=== PATIENT | male | born 1990 | race African-American/Black ===

== ENCOUNTER 2017-05-28 20:20 | Emergency (ER) | payer OTHER ==
--- NOTE | ~2017-05-28 | EKG ---
PATIENT: DONNIE HALE UNIT #: [id number] Ventricular Rate: 65 BPM Atrial Rate: 65 BPM P-R Interval: 122 ms QRS Duration: 82 ms Q-T Interval: 380 ms QTC Calculation(Bezet): 395 ms P [place]: 33 degrees Calculated R [place]: 66 degrees Calculated T [place]: 46 degrees Diagnosis Line: Normal sinus rhythm with sinus arrhythmia Diagnosis Line: Early repolarization Diagnosis Line: Normal ECG Diagnosis Line: No previous ECGs available Diagnosis Line: Confirmed by YOLIE MANZANARES MD ([id number]) on Diagnosis Line: 05/30/2017 3:51:21 PM INTERPRETING MD: GLENNA BARNES
[2017-05-28 21:05] LABS: URINE SOURCE CLEAN CATCH
[2017-05-28 21:10] LABS: BASOPHIL% 0.6 % (0-2.5); EOSINOPHIL# 0.1 X10e3 (0-0.7); EOSINOPHIL% 2.3 % (0.0-7.0); HEMATOCRIT 48.2 % (38.0-50.0); HEMOGLOBIN 16.6 gm/dL (13.0-16.0); LYMPHOCYTE# 1.7 X10e3 (1.0-3.5); LYMPHOCYTE% 28.3 % (17.0-45.0); MEAN CORPUSCULAR HGB CONC 34.4 g/dL (30-36); MEAN PLATELET VOLUME 7.9 FL (6.5-11.5); MONOCYTE% 15.8 % (3.0-12.0); NEUTROPHIL# 3.2 X10e3 (1.5-7.1); PLATELET COUNT 258 X10e3 (140-420); RED BLOOD COUNT 5.19 X10e (3.90-5.60); RED CELL DISTRIBUTION WIDTH 14.1 % (11.0-15.5); WHITE BLOOD COUNT 6.1 X10e3 (4.0-10.5)
[2017-05-28 21:12] LABS: URINE APPEARANCE CLEAR; URINE BILIRUBIN NEG (NEG); URINE BLOOD NEG (NEG); URINE COLOR YELLOW; URINE GLUCOSE NEG (NORM); URINE KETONE NEG (NEG); URINE LEUKOCYTE ESTERASE NEG (NEG); URINE NITRATE NEG (NEG); URINE PROTEIN NEG (NEG)
[2017-05-28 21:14] LABS: MICRO INDICATED? NO
[2017-05-28 21:14] LABS: DIFF IND NO
[2017-05-28 21:22] LABS: AMPHETAMINE NEG (NEG); BARBITURATES NEG (NEG); BENZODIAZEPINES NEG (NEG); COCAINE NEG (NEG); MARIJUANA POS (NEG); OPIATES NEG (NEG); TRICYCLIC ANTIDEPRESSANTS NEG (NEG); U METHADONE NEG (NEG)
[2017-05-28 21:28] LABS: ALBUMIN SERUM 4.3 g/dL (3.5-5.0); BILIRUBIN, DIRECT 0.1 mg/dL (0.0-0.2); BILIRUBIN,INDIRECT 0.6 mg/dL (0.0-0.9); BILIRUBIN,TOTAL 0.7 mg/dL (0.2-2.0); CALCIUM SERUM 8.6 mg/dL (8.4-10.2); GLOM FILT RATE Estimated 120.7 mL/min (>60); MAGNESIUM 2.1 mg/dL (1.6-3.0); POTASSIUM 3.3 mmol/L (3.5-5.1); PROTEIN TOTAL SERUM 7.9 g/dL (6.0-8.3)
== END 2017-05-28 21:55 | disposition home or self-care (01) ==
LOC: SED 20:20
PROVIDERS: Student in an Organized Health Care Education/Training Program
DX: E87.6 Hypokalemia (principal); F12.10 Cannabis abuse, uncomplicated; J45.909 Unspecified asthma, uncomplicated; F17.200 Nicotine dependence, unspecified, uncomplicated
CPT/HCPCS: 36415; 80048; 80076; 80307; 81003; 83690; 83735; 85025; 93005; 96361; 96374; 99284; J2405

== ENCOUNTER 2017-06-25 03:14 | Emergency (ER) | payer BC ==
[~2017-06-25] VITALS: Ht 167.6 cm; Wt 86.2 kg
[2017-06-25 03:58] LABS: BASOPHIL% 0.6 % (0-2.5); EOSINOPHIL# 0.2 X10e3 (0-0.7); EOSINOPHIL% 2.7 % (0.0-7.0); HEMATOCRIT 45.7 % (38.0-50.0); HEMOGLOBIN 15.7 gm/dL (13.0-16.0); LYMPHOCYTE# 1.4 X10e3 (1.0-3.5); LYMPHOCYTE% 21.4 % (17.0-45.0); MEAN CELL VOLUME 93.4 FL (83-96); MEAN CORPUSCULAR HGB CONC 34.2 g/dL (30-36); MEAN PLATELET VOLUME 7.8 FL (6.5-11.5); MONOCYTE# 0.8 X10e3 (0-1.0); MONOCYTE% 11.7 % (3.0-12.0); NEUTROPHIL# 4.3 X10e3 (1.5-7.1); NEUTROPHIL% 63.6 % (40-75); PLATELET COUNT 236 X10e3 (140-420); RED BLOOD COUNT 4.89 X10e (3.90-5.60); RED CELL DISTRIBUTION WIDTH 13.5 % (11.0-15.5); WHITE BLOOD COUNT 6.8 X10e3 (4.0-10.5)
[2017-06-25 03:59] LABS: DIFF IND NO
[2017-06-25 04:14] LABS: ALBUMIN SERUM 4.1 g/dL (3.5-5.0); BILIRUBIN, DIRECT 0.1 mg/dL (0.0-0.2); BILIRUBIN,INDIRECT 0.8 mg/dL (0.0-0.9); BILIRUBIN,TOTAL 0.9 mg/dL (0.2-2.0); CALCIUM SERUM 8.6 mg/dL (8.4-10.2); GLOM FILT RATE Estimated 120.7 mL/min (>60); POTASSIUM 3.3 mmol/L (3.5-5.1); PROTEIN TOTAL SERUM 7.4 g/dL (6.0-8.3)
== END 2017-06-25 04:55 | disposition home or self-care (01) ==
LOC: SED 03:14
PROVIDERS: Emergency Medicine
DX: G40.909 Epilepsy, unspecified, not intractable, without status epilepticus (principal); F17.200 Nicotine dependence, unspecified, uncomplicated; Z88.1 Allergy status to other antibiotic agents
CPT/HCPCS: 80048; 80076; 85025; 99284

== ENCOUNTER 2017-06-25 10:11 | Inpatient (IN) | payer BC, OTHER ==
[~2017-06-25] VITALS: Ht 167.6 cm; Wt 86.2 kg
--- NOTE | ~2017-06-25 | DS ---
Unit #: [id number] #: [id number] Patient: DONNIE HALE [id number] [facility] [address] [place] [address] [id number] MR#: [id number] NAME: DONNIE HALE ROOM: [facility] Age: 26 Sex: M Admission Date: 06/25/2017 : 1990 Discharge Date: 06/28/2017 Attending Physician: Greyson Carmichael M.D. Primary Care Physician: Generic Doctor Not In System DISCHARGE SUMMARY REASON FOR ADMISSION The patient is a 26-year-old male admitted with worsening symptoms of depression. HOSPITAL COURSE The patient was admitted to the [address] [place] [address] unit and placed on suicidal precautions. He was begun on a trial of Wellbutrin XL 150 mg daily and trazodone 50 mg at h.s. was initiated. The patient tolerated the medications well and showed significant brightening in mood. He denied any psychotic symptoms which he initially reported at the time of admission. By 06/28 the patient was in bright spirits and requested discharge from the hospital it was so ordered. FINAL DIAGNOSES Major depressive disorder, recurrent moderate. DISPOSITION ON DISCHARGE The patient is discharged on the following medications: Wellbutrin XL 150 mg daily for depression, trazodone 50 mg at h.s. p.r.n. insomnia. The patient's prognosis is considered good. Followup will take place in the intensive outpatient program provided by this facility. Dictated by... Greyson Carmichael M.D. CB/braden TD: 06/29/2017 03:32 JOB #: [id number] DISCHARGE SUMMARY Page 1 of 1 X Greyson Carmichael MD X DISCHARGE SUMMARY
--- NOTE | ~2017-06-25 | PN ---
Unit #: [id number] #: [id number] Patient: DONNIE HALE [id number] [facility] [address] [place] [address] [id number] I MR#: [id number] NAME: DONNIE HALE ROOM: [facility] Age: 26 Sex: M Admission Date: 06/25/2017 : 1990 Attending Physician: Greyson Carmichael M.D. Admitting Physician: Greyson Carmichael M.D. Primary Care Physician: Generic Doctor Not In System [facility] PROGRESS NOTES DATE 06/27/2017 DISCUSSION The patient seems to be in much brighter spirits today. He has tolerated initiation of medication and was active within the therapeutic milieu. He is denying any suicidal ideation or psychotic symptoms. Should he sustain progress, discharge should take place as early as tomorrow. Dictated by... Greyson Carmichael M.D. CB/macy TD: 06/27/2017 13:33 JOB #: [id number] [facility] PROGRESS NOTES Page 1 of 1 X Greyson Carmichael MD X PROGRESS NOTE
--- NOTE | ~2017-06-25 | HP ---
Unit #: [id number] #: [id number] Patient: VINNY HALE [id number] [facility] [address] [place] [address] [id number] I MR#: [id number] NAME: VINNY HALE ROOM: [facility] Age: 26 Sex: M Admission Date: 06/25/2017 : 1990 Attending Physician: Greyson Carmichael M.D. Admitting Physician: Greyson Carmichael M.D. Primary Care Physician: Generic Doctor Not In System HISTORY AND PHYSICAL HISTORY OF PRESENT ILLNESS Vinny is a 26 year old admitted to [facility] reporting auditory hallucinations and verbalizing wanting to hurt himself. His history is taken from his chart. PAST MEDICAL HISTORY Nothing significant. PAST SURGICAL HISTORY Nothing reported. ALLERGIES Penicillin. SOCIAL HISTORY smokes on occasion. Denies alcohol. Admits to using marijuana frequently. FAMILY HISTORY Medically noncontributory. REVIEW OF SYSTEMS No reports of nausea, vomiting or diarrhea. He has had status not known. CURRENT MEDICATIONS 1. Desyrel 50 mg q.h.s. p.r.n. 2. Milk of Magnesia p.r.n. 3. Maalox p.r.n. 4. Tylenol p.r.n. PHYSICAL EXAMINATION GENERAL: Alert, well-nourished, in no apparent distress. VITAL SIGNS: Blood pressure 140/90, heart rate 80, respirations 16, temperature 98.6. WEIGHT: 190 pounds. HEIGHT: 5'6". SKIN: Warm and dry without rash or lesion. HEENT: Normocephalic. TMs not viewed. Oral and nasal passages clear. Conjunctivae clear. Pupils equal, round and reactive to light and accommodation. Extraocular movements intact. NECK: Supple without lymphadenopathy or thyromegaly. HEART: Regular rate and rhythm without murmur. Unit #: [id number] #: [id number] Patient: VINNY HALE LUNGS: Clear. ABDOMEN: Soft, nontender. : Not done. EXTREMITIES: No evidence of cyanosis, clubbing or edema. Moves all extremities without focal deficit. NEUROLOGICAL: Unable to complete extended exam. He does move all extremities without focal deficit. Hand lead ramp service man is equal and gait is normal. IMPRESSION Psychiatric admission. RECOMMENDATIONS PSYCHIATRIC: Per psychiatrist. MEDICAL: I see no contraindications to participating in facility's activities. MEDICAL PROGNOSIS Good. MEDICAL CONDITION Stable. Dictated by... Belem Ruiz P.A.-C. for Karen Morrison/braden TD: 06/25/2017 22:35 JOB #: [id number] HISTORY AND PHYSICAL Page 1 of 1 X Belem Ruiz X HISTORY AND PHYSICAL
--- NOTE | ~2017-06-25 | PA ---
Unit #: [id number] #: [id number] Patient: DONNIE HALE [id number] [facility] [address] [place] [address] [id number] I MR#: [id number] NAME: DONNIE HALE ROOM: [facility] Age: 26 Sex: M Admission Date: 06/25/2017 : 1990 Date of Assessment: 06/26/2017 Attending Physician: Greyson Carmichael M.D. Admitting Physician: Greyson Carmichael M.D. Primary Care Physician: Generic Doctor Not In System PSYCHIATRIC ASSESSMENT IDENTIFYING INFORMATION The patient is a 26-year-old male, admitted to the [address] [place] [address] unit voicing positive suicidal ideation with plan to hang himself. CHIEF COMPLAINT "I've been real depressed." INFORMANTS The patient. The patient's reliability is good. HISTORY OF PRESENT ILLNESS The patient is a 26-year-old single male, admitted voicing positive suicidal ideation. The patient reports 2 weeks ago, he attempted to end his life by hanging himself after a relationship break up. He continues to endorse positive suicidal ideation. When seen today, he also reports that he has been "hearing voices telling him to punch himself in the chest." The patient is currently denying any auditory or visual hallucinations and does not seem to exhibit any of the stigmata which one would consider present for a true psychotic illness. The patient lives with his aunt. He reports feelings of disappointment at his station in life, reporting that he feels as though he has disappointed his family with his financial stressors, low work, low achievement in his career, goals, etc. He reports that cannabis use approximately 4 times a week. He denies abuse of other psychoactive substances. The patient reports one previous psychiatric hospitalization has been taken place approximately 2 years ago at this facility. He reports that he was prescribed antidepressant medication at that time, but does not recall the name of that medication. He is currently on no prescribed psychotropic or other medications with the exception of trazodone prescribed by his primary care physician. PAST PSYCHIATRIC HISTORY As above. PAST MEDICAL HISTORY Noncontributory. MEDICATIONS Trazodone. ALLERGIES Amoxicillin. Unit #: [id number] #: [id number] Patient: DONNIE HALE FAMILY HISTORY Noncontributory. SOCIAL HISTORY The patient lives with his aunt. 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 He reports cannabis use as noted previously. MENTAL STATUS EXAMINATION At this time reveals the patient to be a well-developed, well-nourished, male, appearing his stated age. He is in no apparent physical distress at the time of examination. He is awake and alert in all spheres. His mood is dysphoric. His affect is constricted. Speech is generally well coherent. There are no gross deficits in memory or cognition noted. General intelligence is judged to be in the average range based on fund of knowledge. The patient is cooperative throughout the interview. He is currently endorsing positive suicidal ideation. He denies homicidal ideation. He denies any psychotic symptoms. His judgment and insight appear to be intact. ASSETS Motivation for change. LIABILITIES Lack of resources. DIAGNOSTIC IMPRESSION Major depressive disorder, recurrent, moderate; cannabis use disorder. TREATMENT PLAN The patient remains hospitalized for safety and stabilization. He complains of "lack of focus" as well as lack of energy. Accordingly, we will begin Wellbutrin XL 150 mg q.a.m. to address these symptoms of depression. The patient will participate in appropriate ortega and milieu activities with an estimated stay in the hospital of 3 to 5 days. Dictated by... Greyson Carmichael M.D. LINDA/praveena TD: 06/27/2017 02:38 JOB #: [id number] PSYCHIATRIC ASSESSMENT Page 1 of 1 X Greyson Carmichael MD X PSYCHIATRIC ASSESSMENT
[2017-06-26 09:56] LABS: ALBUMIN SERUM 4.3 g/dL (3.5-5.0); BILIRUBIN,TOTAL 0.9 mg/dL (0.2-2.0); BUN/CREATININE RATIO 8.18; CALCIUM SERUM 9.6 mg/dL (8.4-10.2); CREATININE SERUM 1.1 mg/dL (0.6-1.4); GLOM FILT RATE Estimated 107.6 mL/min (>60); POTASSIUM 4.4 mmol/L (3.5-5.1); PROTEIN TOTAL SERUM 7.5 g/dL (6.0-8.3)
== END 2017-06-28 15:47 | disposition home or self-care (01) | DRG 885 ==
LOC: P2L 11:53
PROVIDERS: Specialist
DX: F33.1 Major depressive disorder, recurrent, moderate (principal); F12.10 Cannabis abuse, uncomplicated; Z88.0 Allergy status to penicillin
CPT/HCPCS: 80053